=== PATIENT | male | born 1975 | race Caucasian/White ===

== ENCOUNTER 2017-01-24 01:55 | Emergency (ER) | payer BC ==
[2017-01-24] MEDS ORDERED: ALPRAZolam 0.5 MG TAB ONE (02:41)
== END 2017-01-24 02:46 | disposition home or self-care (01) ==
LOC: BURERS 01:55
DX: F41.9 Anxiety disorder, unspecified (principal); E11.9 Type 2 diabetes mellitus without complications; E78.5 Hyperlipidemia, unspecified; E78.00 Pure hypercholesterolemia, unspecified; I10 Essential (primary) hypertension; F32.9 Major depressive disorder, single episode, unspecified; Z79.899 Other long term (current) drug therapy
CPT/HCPCS: 99283

== ENCOUNTER 2022-12-22 10:30 | Outpatient (CLI) | payer BC | END 2022-12-22 10:31 | disposition home or self-care (01) | LOC: BURRAD 10:30 | PROVIDERS: ATTEND Physician Assistant | DX: J06.9 Acute upper respiratory infection, unspecified (principal); R05.9 Cough, unspecified | CPT/HCPCS: 71046 ==